=== PATIENT | male | born 1955 | race Caucasian/White ===

== ENCOUNTER 2020-11-25 09:00 | Emergency (ER) | payer MEDICARE ==
[~2020-11-25] VITALS: Ht 177.8 cm; Wt 77.1 kg
[2020-11-25] MEDS ORDERED: COLCHICINE0.6 M1 PO (09:28)
[2020-11-25] MEDS ORDERED: PREDNISONE20 MG PO (09:28)
== END 2020-11-25 09:51 | disposition home or self-care (01) ==
LOC: ED 09:00
DX: M10.9 Gout, unspecified (principal)
CPT/HCPCS: 99283; A9270; J7512